=== PATIENT | female | born 1985 | race African-American/Black ===

== ENCOUNTER 2020-02-10 17:20 | Emergency (ER) | payer OTHER ==
[~2020-02-10] VITALS: Ht 170.2 cm; Wt 120.7 kg
[~2020-02-10 17:20] MED LIST: APAP500; DERMOPLAST SPRA56 ML; IBUPROFEN 600600 M1; PRENATAL COMPL1 EACH PO; TUCKS MEDICATE1 EAC1; TYLENOL PO
[2020-02-10 22:26] LABS: ABSOLUTE NEUTROPHILS 2.1 thou/uL (1.4-8.2); BASOPHILS 0.9 % (0.0-2.0); EOSINOPHILS 2.6 % (0.0-3.0); HEMATOCRIT 41.5 % (37.0-47.0); HEMOGLOBIN 13.6 gm/dL (12.0-15.0); LYMPHOCYTES 46.2 % (24.0-44.0); MCH 30.9 pg (26.0-34.0); MCHC 32.8 g/dL (28.0-37.0); MCV 94.2 fL (80.0-100.0); MONOCYTES 10.7 % (1.0-8.0); PLATELET COUNT 224 thou/uL (150-400); POLYS 39.6 % (36.0-66.0); RBC 4.41 mil/uL (4.20-5.00); RDW 14.5 % (10.5-14.5); WBC 5.3 thou/uL (4.0-11.0)
[2020-02-10 22:27] LABS: CALCIUM 9.4 mg/dL (8.5-10.1); CREATININE 0.9 mg/dL (0.6-1.0); POTASSIUM 3.5 mmol/L (3.5-5.1)
[2020-02-10 22:29] LABS: URINE BILIRUBIN 1+ (Negative); URINE BLOOD NEGATIVE (Negative); URINE CLARITY CLEAR; URINE COLOR YELLOW; URINE GLUCOSE-RANDOM* NEGATIVE (Negative); URINE KETONES 2+ (Negative); URINE LEUKOCYTES-REFLEX NEGATIVE (Negative); URINE NITRITE-REFLEX NEGATIVE (Negative); URINE PROTEIN (DIPSTICK) NEGATIVE (Negative); URINE SPECIFIC GRAVITY 1.025 (1.005-1.035); URINE UROBILINOGEN 0.2 E.U./dl (0.2-1.0)
[2020-02-10] MEDS ORDERED: OXYCODONE HCL 55 MG PO (22:30)
[2020-02-10] MEDS ORDERED: OMEPRAZOLE 20 M20 M1 PO (22:30)
[2020-02-10] MEDS ORDERED: BUPROPION XL150 MG PO (22:30)
[2020-02-10] MEDS ORDERED: ONDANSETRON HCL4 M3 PO (22:31)
[2020-02-10] MEDS ORDERED: CARAFATE 1 GM TA1 G1 PO (22:31)
[2020-02-10 22:37] LABS: TOTAL BILIRUBIN 0.4 mg/dL (0.2-1.0); TOTAL PROTEIN 7.6 g/dL (6.4-8.2)
[2020-02-11] MEDS ORDERED: ZOFRAN ODT4 MG PO (01:33)
[2020-02-11] MEDS ORDERED: NORCO 5-325 TA1 EAC2 PO (01:33)
[2020-02-11 01:51] VITALS: BP 142/82
== END 2020-02-11 01:52 | disposition home or self-care (01) ==
LOC: ER 17:20
PROVIDERS: Emergency Medicine; Physician Assistant
DX: G89.18 Other acute postprocedural pain (principal); R10.12 Left upper quadrant pain; Z79.899 Other long term (current) drug therapy

== ENCOUNTER → 2021-04-12 | Outpatient (CLI) | payer OTHER ==
[~2021-04-12] MED LIST changes: +BUPROPION XL150 MG PO; +CARAFATE 1 GM TA1 G1 PO; +HYDROCODONE-ACE15 ML PO; +NORCO 5-325 TA1 EAC2 PO; +OMEPRAZOLE 20 M20 M1 PO; +ONDANSETRON HCL4 M3 PO; +OXYCODONE HCL 55 MG PO; +ZOFRAN ODT4 MG PO
[2021-04-12 10:35] LABS: BASOPHILS 0.9 % (0.0-2.0); EOSINOPHILS 2.8 % (0.0-3.0); HEMATOCRIT 39.2 % (37.0-47.0); HEMOGLOBIN 13.1 gm/dL (12.0-15.0); LYMPHOCYTES 33.5 % (24.0-44.0); MCH 31.6 pg (26.0-34.0); MCHC 33.5 g/dL (28.0-37.0); MCV 94.4 fL (80.0-100.0); MONOCYTES 10.7 % (1.0-8.0); PLATELET COUNT 274 thou/uL (150-400); POLYS 52.1 % (36.0-66.0); RBC 4.15 mil/uL (4.20-5.00); RDW 13.7 % (10.5-14.5); WBC 5.8 thou/uL (4.0-11.0)
[2021-04-12 10:54] LABS: ALBUMIN 3.5 g/dL (3.4-5.0); CALCIUM 9.1 mg/dL (8.5-10.1); CREATININE 0.7 mg/dL (0.6-1.0); POTASSIUM 4.4 mmol/L (3.5-5.1); TOTAL BILIRUBIN 0.3 mg/dL (0.2-1.0); TOTAL PROTEIN 7.3 g/dL (6.4-8.2)
[2021-04-13 03:06] LABS: GLYCOHEMOGLOBIN (HGB A1C) 5.1 % (4.8-5.6)
== END ==
LOC: LAB 09:57
PROVIDERS: ATTEND Surgery
DX: Z01.812 Encounter for preprocedural laboratory examination (principal)

== ENCOUNTER 2021-04-14 07:06 | Inpatient (IN) | payer OTHER ==
[~2021-04-14] VITALS: Ht 170.2 cm; Wt 88.0 kg
--- NOTE | ~2021-04-14 | O ---
[facility] [place] [address] OPERATIVE REPORT Name: CHANEL VILLAFUERTE Room #: 439-P [facility] [place] ..#: [id number] Admission: 04/14/21 Attend Phys: Eliseo Chang MD Discharge: 04/16/21 Date of : 87 Report #: [id number] THIS REPORT FOR: cc: [facility] - Clinic physician unknown [facility] - Clinic physician unknown Eliseo Chang MD ~ DATE OF SERVICE: 04/14/2021 PREOPERATIVE DIAGNOSES: History of gastric sleeve, severe refractory reflux, features of sleeve obstruction, and hiatal hernia. POSTOPERATIVE DIAGNOSES: History of gastric sleeve, severe refractory reflux, features of sleeve obstruction, and hiatal hernia. OPERATIVE PROCEDURES DONE: 1. Laparoscopic revision of sleeve gastrectomy to a Cornell-en-Y gastric bypass. 2. Repair of hiatal hernia. 3. Upper GI endoscopy. OPERATING SURGEON: Eliseo Chang MD INDICATIONS FOR THE PROCEDURE: The patient is a 35-year-old female who presented with features of severe refractory reflux symptoms. The patient has a history of gastric sleeve done a few years ago. Upper GI contrast study that was done showed features of mild obstruction in the middle portion of the gastric sleeve with features of reflux. The patient was advised laparoscopic revision to a gastric bypass and repair of hiatal hernia. The patient showed understanding and agreed to proceed. PROCEDURE IN DETAIL: After explaining to the patient in detail and informed consent was obtained, the patient was identified in the preoperative holding area. The patient was transferred to the operating room and was placed in supine position. Sequential compression devices were placed for DVT prophylaxis. Preoperative antibiotics were given. After induction of anesthesia, the abdomen was prepped and draped in a sterile fashion. Through a left upper quadrant 1 cm incision and using Optiview technique, peritoneal cavity was entered and pneumoperitoneum was created. Thereafter, under direct vision, another 5 mm trocar was placed in the left mid abdomen, another 12 mm trocar was placed in the right mid abdomen, another 5 mm trocar was placed in the right flank and through a 1 cm incision in the epigastrium, a Andres retractor was introduced and the left lobe of the liver was retracted. On initial inspection, the patient was noted to have a small hiatal hernia. Using pars flaccida technique, the right maame was identified and I gently dissected off the sac on the hernia along the right maame and then anteriorly and then along the left maame. There were some adhesions in the lateral aspect. I took down all the adhesions and I then performed an anterior cruroplasty with a [facility] [address] [place] [address] OPERATIVE REPORT Name: CHRISTOCHANEL Brar Room #: 439-P [facility]..#: [id number] Admission: 04/14/21 Attend Phys: Eliseo Chang MD Discharge: 04/16/21 Date of : 87 Report #: [id number] Ethibond suture. I then divided the gastric sleeve in a transverse fashion at the junction of the proximal and middle third of the stomach using Endo-AFSANEH black load stapler. I then identified the proximal jejunum at the ligament of Treitz. I then measured downstream for about 50 cm and enterotomy was made at this point. A posterior gastrotomy was made on the gastric pouch. A posterior gastrojejunostomy was made to create a 2.5 cm anastomosis over the ViSiGi tube. The common gastroenterotomy was then closed using Vicryl suture in two layers using the EndoStitch device. I then divided the biliary limb just proximal to the anastomosis, measured the Cornell limb for about 80 cm and enterotomy was made at this point and enterotomy was made on the biliary limb and a [id number] jejunojejunostomy was made. The common enteroenterotomy was closed using a blue load stapler. The mesenteric defect around the jejunum was closed using the EndoStitch device and upper GI endoscopy was then performed to do an air leak test and air leak test was performed by insufflation of the stomach. The Cornell limb was entered without difficulty. There was no leak that was noted on the staple line. All irrigation of fluid along the staple line stopped. The scope was then removed. Absolute hemostasis was ensured. Thorough saline irrigation was given. The 12 mm port site incision was then closed with 0 Vicryl for the fascia. Skin was closed with 4-0 Monocryl for all the incisions. Dermabond was applied. The patient was stable at the end of the procedure. The patient was awoken from anesthesia and was transferred to the recovery room in stable condition. ESTIMATED BLOOD LOSS: Approximately 20 mL. CONDITION: The patient is stable. FLUIDS GIVEN: Per anesthesia notes. SPECIMEN SENT: None. COMPLICATIONS: None. ANESTHESIA: General anesthesia. By: [id number] Eliseo Chang MD /brittney
[~2021-04-14 07:06] MED LIST changes: -HYDROCODONE-ACE15 ML PO
[2021-04-14 09:18] VITALS: BP 120/80
[2021-04-14 17:34] VITALS: BP 139/102
--- NOTE | 2021-04-14 18:06 | NUR ---
pT ARRIVE FROM POST OP. ALERT AND ORIENTED. DENIES ACUTE PAIN BUT FEELS "UNCOMFORTABLE AND HARD TO GET COMFORTABLE, I GUESS I'D CALL IT 09/03" LEFT PIV IN PLACE. NPO AT THIS TIME. FEW ICE CHIPS GIVEN TO WET MOUTH. NO OTHER CONCERNS AT THIS TIME. PLAN TO AMBULATE SOON NEEDS BATHROOM. WILL CONTINUE TO MONITOR AND FOLLOW POC.
[2021-04-14 19:47] VITALS: BP 153/110
--- NOTE | 2021-04-15 06:06 | NUR ---
RECEIVED CARE OF THIS PATIENT AT 1900. PATIENT ALERT AND ORIENTED X4. UP AD KEITH. C/O PAIN, MED GIVEN. 4 SMALL INCIAIONS ON ABD WITH DERMABOND. IV PATENT IN LAC WITH FLUIDS INFUSING. SLEPT OFF AND ON DURING NIGHT,
[2021-04-15 08:48] VITALS: BP 128/91
[2021-04-15 15:22] LABS: ABSOLUTE NEUTROPHILS 5.3 thou/uL (1.4-8.2); BASOPHILS 0.4 % (0.0-2.0); EOSINOPHILS 0.2 % (0.0-3.0); HEMATOCRIT 32.3 % (37.0-47.0); HEMOGLOBIN 10.5 gm/dL (12.0-15.0); LYMPHOCYTES 16.2 % (24.0-44.0); MCH 31.4 pg (26.0-34.0); MCHC 32.6 g/dL (28.0-37.0); MCV 96.3 fL (80.0-100.0); MONOCYTES 12.1 % (1.0-8.0); PLATELET COUNT 236 thou/uL (150-400); POLYS 71.1 % (36.0-66.0); RBC 3.35 mil/uL (4.20-5.00); WBC 7.5 thou/uL (4.0-11.0)
[2021-04-15 15:26] LABS: ALBUMIN 3.1 g/dL (3.4-5.0); CALCIUM 8.7 mg/dL (8.5-10.1); CREATININE 0.6 mg/dL (0.6-1.0); POTASSIUM 4.3 mmol/L (3.5-5.1); TOTAL BILIRUBIN 0.4 mg/dL (0.2-1.0); TOTAL PROTEIN 6.3 g/dL (6.4-8.2)
--- NOTE | 2021-04-15 15:29 | NUR ---
ASSUMED CARE OF PT AT 0700. PT WAS RESTING, NO COMPLAINTS OF ANYTHING EXCEPT FOR INCISIONAL PAIN. GIVEN IV MORPHINE. PT TOLERATING CLEAR LIQUID DIET. ALSO GIVEN JELLY. ALL VITAL SIGNS WNL. DISCHARGING HOME TOMORROW. NO OTHER CONCERNS.
[2021-04-15 20:31] VITALS: BP 136/87
--- NOTE | 2021-04-16 03:07 | NUR ---
Pt. rested quietly at intervals during the night when checked on during frequent rounds. She was given pain meds for c/o abdominal pain (see emar) with some relief noted. Pt. also c/o mausea and iv zofran given (see emar) with relief.
[2021-04-16 07:29] VITALS: BP 131/100
--- NOTE | 2021-04-16 10:04 | NUR ---
PATIENT CALLED OUT THAT SHE WAS HAVING CHEST PAIN. DURING REASSEMENT OF PATIETN SHE DESCRIBED IT "MAYBE GAS OR CONGESTION STUCK IN HER CHEST THAT SHE COULDN'T GET OUT" PT VS WERE WITHIN NORMAL LIMITS BESIDES HEARTRATE WHICH WAS ELEVATED IN THE 130'S. PATIENT COMPLAINED OF PAIN. ORAL NORCO WAS GIVEN AND DR KATE WAS MESSAGED REGARDING THIS EVENT. WILL FOLLOW UP NOTE WITH NEW CHANGES.
[2021-04-16] MEDS ORDERED: HYDROCODONE-ACE15 ML PO (13:38)
[2021-04-16 14:37] VITALS: BP 131/100
== END 2021-04-16 14:58 | disposition home or self-care (01) | DRG 328 ==
LOC: TBA 07:06 → 4S 07:06 → PRE 09:54 → 4S 17:28 → PRE 17:38 → 4S 04-16 14:58
PROVIDERS: ADMIT Surgery; ATTEND Surgery
DX: K95.89 Other complications of other bariatric procedure (principal); K21.9 Gastro-esophageal reflux disease without esophagitis; K44.9 Diaphragmatic hernia without obstruction or gangrene; E66.01 Morbid (severe) obesity due to excess calories; Y83.8 Other surgical procedures as the cause of abnormal reaction of the patient, or of later complication, without mention of misadventure at the time of the procedure; Z20.822 Contact with and (suspected) exposure to COVID-19; Z98.84 Bariatric surgery status; Z79.899 Other long term (current) drug therapy; Z68.30 Body mass index [BMI] 30.0-30.9, adult; Y92.89 Other specified places as the place of occurrence of the external cause
CPT/HCPCS: 10100; 10102; 50010; 50101; 50222; 50386; 50555; 51489; 52265; 52266; 53307; 54022; 54118; 55326; 56462; 56525; 56526; 56531; 57092; 58574; 58587; 58869; 58870; 58872; 58873; 58910; 58911; 62110; 62900; 70005